=== PATIENT | female | born 1990 | race Caucasian/White ===

== ENCOUNTER 2016-07-28 13:40 | Emergency (ER) | payer BC ==
--- NOTE | 2016-07-28 14:42 | UC ---
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 has only had approx 3 cups of water constant diarrhea that is watery generalized crampy abdominal pain and gas urinated 2x today denies dysuria denies fever and chills when she stands up she feels slightly dizzy - History of Current Complaint Chief Complaint: UCGeneralIllness Stated Complaint: DIARRHEA DIZZY Time Seen by Provider: 07/28/16 14:40 Hx Obtained From: Patient Hx Last Menstrual Period: 07/27/16 Allergies/Adverse Reactions: Allergies Allergy/AdvReac Type Severity Reaction Status Date / Time No Known Allergies Allergy Verified 12/01/14 11:06 Home Medications: Home Medications Bismuth Subsalicylate [Pepto-Bismol] 1 chw 07/28/16 [History] PMH/Surg Hx/FS Hx/Imm Hx Previously Healthy: Yes - Surgical History Surgical History: Yes Surgery Procedure, Year, and Place: Brain Shunt - Family History Known Family History: Negative: Cardiac Disease, Hypertension, Diabetes - Social History Occupation: Unemployed Lives: With Family Alcohol Use: Rare Substance Use Type: None Smoking Status (MU): Never Smoked Tobacco Review of Systems Constitutional: Negative Skin: Negative Eyes: Negative ENT: Negative Respiratory: Negative Cardiovascular: Negative Gastrointestinal: Vomiting, Diarrhea Genitourinary: Negative Motor: Negative Neurovascular: Negative Musculoskeletal: Negative Neurological: Negative Psychological: Negative All Other Systems Reviewed And Are Negative: Yes Physical Exam Triage Information Reviewed: Yes Appearance: No Pain Distress, Well-Nourished Vital Signs: Initial Vital Signs Temp 99.0 F 07/28/16 13:52 Pulse 111 07/28/16 13:52 Resp 18 07/28/16 13:52 BP 134/77 07/28/16 13:52 Pulse Ox 99 07/28/16 13:52 Vital Signs Reviewed: Yes Eyes: Positive: Conjunctiva Clear ENT: Positive: Pharynx normal, TMs normal Neck: Positive: No Lymphadenopathy Respiratory: Positive: Lungs clear, Normal breath sounds, No respiratory distress, No accessory muscle use Cardiovascular: Positive: No Murmur, Pulses Normal, Tachycardia Abdomen Description: Positive: Nontender, No Organomegaly, Soft. Negative: CVA Tenderness (R), CVA Tenderness (L), Distended, Guarding Bowel Sounds: Positive: Hyperactive Musculoskeletal: Positive: No Edema Neurological: Positive: Alert Psychological Exam: Normal Skin Exam: Normal Re-Evaluation - Re-Evaluation First Eval Re-Evaluation Time: 15:30 Change: Unchanged Abd Pain Female Course/Dx - Course Course Of Treatment: exam completed. orthostatic VS positive,BP stable, abdomen non-tender. will give fluid rehydration and zofran for rehydration. discussed s/s of when to seek medical help if symptoms do not improve or worsen and pt states understanding - Differential Dx/Diagnosis Differential Diagnosis: Irritable Bowel Syndrome, Other - gastroenteritis Provider Diagnoses: gastroenteritis Discharge - Discharge Plan Condition: Stable Disposition: HOME Prescriptions: Ondansetron ODT TAB* [Zofran 4 MG Odt TAB*] 4 mg PO Q6H PRN #12 tab.odt PRN Reason: Nausea Patient Education Materials: Gastroenteritis (ED) Referrals: Non Staff,Doctor [Primary Care Provider] - Additional Instructions: Take zofran as directed so you can increase your fluids intake GASTROENTERITIS What is Gastroenteritis? Gastroenteritis is an inflammation of the stomach and bowel that is often called the stomach "flu.'' It should only last 2 or 4 days. You usually get gastroenteritis because you've been in contact with someone who's already infected or because you've eaten contaminated food, or drank contaminated water. Many different viruses can cause intestinal problems but the signs and symptoms are usually the same: watery diarrhea, abdominal cramps, and nausea or vomiting. Symptoms Might Include: Abdominal cramps Diarrhea Nausea Vomiting Blood or mucus in stools Muscle aches Headaches Fever Extreme exhaustion Treatment Recommendations: Decrease activity until you feel better or the diarrhea and vomiting are gone. Take clear liquids, such as sara meryl, cola, water, tea, broth, and gelatin, for the first 24 hours or until the diarrhea and vomiting stops. During the next 24 hours you may eat bland foods like cooked cereals, rice, soup, bread, crackers, baked potatoes, eggs, or applesauce. Do not eat fruits, vegetables, fried or spicy foods, bran, candy, dairy products (such as milk or ice cream), apple juice, or alcoholic beverages. You may go back to your normal diet after 2 to 3 days. Drink 8 to 12 glasses of liquid a day. Most of the problems with gastroenteritis are caused by loss of water through vomiting and diarrhea. You may take ibuprofen (Motrin, Advil) or acetaminophen (Tylenol) for fever and muscle aches. Call Your Doctor or Return Here IF: Your symptoms last for more than 4 days. You have severe pain in the abdomen (area around the stomach) or rectum. You have a high temperature. You find blood, mucus, or worms in your stool. You have signs of dehydration (water loss), including dry mouth, excessive thirst, crinkled skin, little or no urination, dizziness, or light-headedness. You have any other new symptoms that worry you.
[2016-07-28] MEDS ORDERED: Ondansetron ODT TAB* 4 MG PO ONE (14:51)
[2016-07-28 15:59] VITALS: BP 119/69
[2016-07-28] MEDS ORDERED: NS 0.9% 1000 ML* 1,000 ML IV ONE (16:04)
== END 2016-07-28 17:05 | disposition home or self-care (01) ==
LOC: UCEAST 13:40
DX: K52.9 Noninfective gastroenteritis and colitis, unspecified (principal)
CPT/HCPCS: 96360; 99212; A9270-GY; G0463

== ENCOUNTER 2017-04-30 20:13 | Emergency (ER) | payer BC ==
[2017-04-30] MEDS ORDERED: NS 0.9% 1000 ML* 1,000 ML IV ONE (22:20)
[2017-04-30] MEDS ORDERED: Ketorolac INJ* 30 MG/ML 1 ML VIAL IV PUSH ONE (22:20)
[2017-04-30] MEDS ORDERED: Metoclopramide IV* 5 MG/ML 2 ML VIAL IV SLOW PU ONE (22:21)
[2017-04-30] MEDS ORDERED: diPHENhydraMINE IV* 50 MG/ML 1 ml VIAL (BENADRYL) IV ONE (22:21)
[2017-04-30 23:51] LABS: EGFR Non-African American 117.3 (>60)
[2017-05-01 00:12] LABS: ABS Basophils 0.1 10^3/ul (0-0.2); ABS Eosinophils 0.1 10^3/ul (0-0.6); ABS Lymphocytes 2.3 10^3/ul (1.0-4.8); ABS Monocytes 0.9 10^3/ul (0-0.8); ABS Neutrophils 4.9 10^3/ul (1.5-7.7); ABS Nucleated RBC 0 10^3/ul; Eosinophil % 1.6 % (0-6); Hematocrit 37 % (35-47); Hemoglobin 12.1 g/dl (12.0-16.0); Lymphocyte % 27.7 % (25-47); Mean Corpuscular HGB Conc 33 g/dl (31-36); Mean Corpuscular Hemoglobin 24 pg (27-31); Mean Corpuscular Volume 72 fL (80-97); Mean Platelet Volume 7 um3 (7.4-10.4); Nucleated Red Blood Cells % 0.2; Platelet Count 428 10^3/ul (150-450); Red Blood Count 5.12 10^6/ul (4.0-5.4); Red Cell Distribution Width 16 % (10.5-15); White Blood Count 8.3 10^3/ul (3.5-10.8)
--- NOTE | 2017-05-01 01:03 | ED ---
Shonda Rodriguez Edward, scribed for Jesenia Rea MD on 04/30/17 at 2158 . Neck Pain - HPI Summary HPI Summary: 27 y/o female presents to the ED c/o neck pain described as pressure starting earlier today. The pain radiates down the back of her neck on the R side. Associated sx: KENNEY, diarrhea, nausea. Denies vomiting, fever. Pt had a shunt placed at 6 months old for hydrocephalus. LNMP 2 weeks ago. - History of Current Complaint Chief Complaint: EDHeadache Stated Complaint: HEAD/NECK PAIN Time Seen by Provider: 04/30/17 21:56 Hx Obtained From: Patient Hx Last Menstrual Period: 07/27/16 Onset/Duration Of Injury/Symptoms: Hours Timing: Constant Pain Intensity: 5 Pain Scale Used: 0-10 Numeric Location: Radiates To: - down back of neck Character: Other: - pressure Aggravating Factors: Nothing Alleviating Factors: Nothing Associated Signs & Symptoms: Positive: Headache - Allergies/Home Medications Allergies/Adverse Reactions: Allergies Allergy/AdvReac Type Severity Reaction Status Date / Time No Known Allergies Allergy Verified 12/01/14 11:06 PMH/Surg Hx/FS Hx/Imm Hx Previously Healthy: No Endocrine/Hematology History: Denies: Hx Diabetes Cardiovascular History: Denies: Hx Myocardial Infarction Neurological History: Reports: Other Neuro Impairments/Disorders - Hydrocephalus - Surgical History Surgery Procedure, Year, and Place: Brain Shunt - 6 months old Infectious Disease History: No Infectious Disease History: Denies: Hx Clostridium Difficile, Hx Hepatitis, Hx Human Immunodeficiency Virus (HIV), Hx of Known/Suspected MRSA, Hx Shingles, Hx Tuberculosis, Hx Known/ Suspected VRE, Hx Known/Suspected VRSA, History Other Infectious Disease, Traveled Outside the [place] in Last 30 Days - Family History Known Family History: Negative: Cardiac Disease, Hypertension, Diabetes - Social History Alcohol Use: Rare Hx Substance Use: No Substance Use Type: Reports: None Hx Tobacco Use: No Smoking Status (MU): Never Smoked Tobacco Review of Systems Constitutional: Negative Eyes: Negative ENT: Other - neck pain Cardiovascular: Negative Respiratory: Negative Gastrointestinal: Negative Genitourinary: Negative Musculoskeletal: Negative Skin: Negative Positive: Headache Psychological: Normal All Other Systems Reviewed And Are Negative: Yes Physical Exam - Summary Physical Exam Summary: VITAL SIGNS: Reviewed. GENERAL: Patient is a well-developed and nourished female who is lying comfortable in the stretcher. Patient is not in any acute respiratory distress. HEAD AND FACE: No signs of trauma. No ecchymosis, hematomas or skull depressions. No sinus tenderness. EYES: PERRLA, EOMI x 2, No injected conjunctiva, no nystagmus. EARS: Hearing grossly intact. Ear canals and tympanic membranes are within normal limits. MOUTH: Oropharynx within normal limits. NECK: Supple, trachea is midline, no adenopathy, no JVD, no carotid bruit, no c- spine tenderness, neck with full ROM. CHEST: Symmetric, no tenderness at palpation LUNGS: Clear to auscultation bilaterally. No wheezing or crackles. CVS: Regular rate and rhythm, S1 and S2 present, no murmurs or gallops appreciated. ABDOMEN: Soft, non-tender. No signs of distention. No rebound no guarding, and no masses palpated. Bowel sounds are hyperactive. EXTREMITIES: FROM in all major joints, no edema, no cyanosis or clubbing. NEURO: Alert and oriented x 3. No acute neurological deficits. Speech is normal and follows commands. SKIN: Dry and warm Triage Information Reviewed: Yes Vital Signs On Initial Exam: Initial Vitals Temp Pulse Resp BP Pulse Ox 99 F 88 16 122/72 100 04/30/17 20:15 04/30/17 20:15 04/30/17 20:15 04/30/17 20:15 04/30/17 20:15 Vital Signs Reviewed: Yes Diagnostics - Vital Signs Vital Signs Temp Pulse Resp BP Pulse Ox 04/30/17 20:15 99 F 88 16 122/72 100 - Laboratory Result Diagrams: 04/30/17 23:05 04/30/17 23:05 Lab Statement: Any lab studies that have been ordered have been reviewed, and results considered in the medical decision making process. - CT BRAIN CT CT Interpretation: No Acute Changes - Right frontal ventriculostomy tube is seen terminating near the tip of the right frontal horn. Right lateral ventricle slightly smaller in size compared to left. No evidence of obstructive hydrocephalus or midline shift. There is no CT evidence of acute cortical territorial infarction, bleed, mass lesion, mass effect, hydrocephalus or abnormal extraaxial collection. CT Interpretation Completed By: Radiologist - ED PHYSICIAN REVIEWS AND AGREES. Re-Evaluation - Re-Evaluation 1 Re-Evaluation Time: 00:54 Change: Improved Comment: Discuss CT results Neck Course/Dx - Course Assessment/Plan: BRAIN CT SHOWS Right frontal ventriculostomy tube is seen terminating near the tip of the right frontal horn. Right lateral ventricle slightly smaller in size compared to left. No evidence of obstructive hydrocephalus or midline shift. There is no CT evidence of acute cortical territorial infarction, bleed, mass lesion, mass effect, hydrocephalus or abnormal extraaxial collection. On re-eval the pt is improved. Pt will be d/c home w/ f/u with PCP. - Diagnoses Provider Diagnoses: Headache Discharge - Discharge Plan Condition: Stable Disposition: HOME Patient Education Materials: General Headache (ED) Referrals: Non Staff,Doctor [Primary Care Provider] - 4 Days (PLEASE F/U IN 3-5 DAYS) Additional Instructions: RETURN TO THE ED FOR THE RETURN OR WORSENING OF SYMPTOMS The documentation as recorded by the Shonda tucker Edward accurately reflects the service I personally performed and the decisions made by me, Jesenia Rea MD.
[2017-05-01 01:21] VITALS: BP 119/59
--- NOTE | 2017-05-01 07:42 | RAD ---
INDICATION: Head and neck pain in a patient with a ventriculoperitoneal shunt. COMPARISON: None. TECHNIQUE: Contiguous axial sections of the brain were obtained from the skull base to the vertex without contrast. FINDINGS: A right frontal lobe ventriculoperitoneal shunt is seen terminating in the anterior horn of the right lateral ventricle on the sagittal view images (image 15) the tip of the catheter appears to terminate at the margin of the ventricle. Otherwise the ventricles, cisterns and sulci are within normal limits. The cohen-white matter differentiation is adequately maintained and there is no sulcal effacement. No significant focal abnormality or mass effect is present. There is no evidence for intracranial hemorrhage. No significant focal osseous abnormality is present. The visualized portion of the paranasal sinuses appear clear. The mastoid air cells are well aerated bilaterally. IMPRESSION: 1. The right frontal lobe ventricle appears to terminate at the very margin of the right frontal ventricle but there is no appearance of hydrocephalus, asymmetric or otherwise. 2. Otherwise normal CT of the brain.
== END 2017-05-01 01:20 | disposition home or self-care (01) ==
LOC: ED 20:13
DX: R51 Headache (principal); M54.2 Cervicalgia
CPT/HCPCS: 36415; 70450; 80053; 84702; 85025; 96374; 96375; 99283; J1200; J1885; J2765

== ENCOUNTER 2017-07-06 20:53 | Emergency (ER) | payer BC ==
[2017-07-06 21:09] VITALS: BP 128/66
--- NOTE | 2017-07-06 21:17 | UC ---
Ear Complaint HPI - HPI Summary HPI Summary: 27 year old with ear complaint . ear is painful for 3-4 days. feels plugged. tried q tip and essential oils and not improved no vertigo. no falling. no discharge otherwise. - History of Current Complaint Stated Complaint: EAR CLOGGED Time Seen by Provider: 07/06/17 21:04 Hx Obtained From: Patient Hx Last Menstrual Period: 07/27/16 Onset/Duration: Gradual Onset - Allergies/Home Medications Allergies/Adverse Reactions: Allergies Allergy/AdvReac Type Severity Reaction Status Date / Time No Known Allergies Allergy Verified 12/01/14 11:06 Home Medications: Home Medications Testosterone [Androgel] 2.5 mg SUBCUT WEEKLY 07/06/17 [History Confirmed ] PMH/Surg Hx/FS Hx/Imm Hx Previously Healthy: Yes - Surgical History Surgical History: Yes Surgery Procedure, Year, and Place: Brain Shunt - 6 months old - Family History Known Family History: Negative: Cardiac Disease, Hypertension, Diabetes - Social History Occupation: Employed Full-time - [employer] Lives: With Family Alcohol Use: Rare Substance Use Type: None Smoking Status (MU): Never Smoked Tobacco Review of Systems ENT: Ear Ache Is Patient Immunocompromised?: No All Other Systems Reviewed And Are Negative: Yes Physical Exam Triage Information Reviewed: Yes Appearance: Well-Appearing Vital Signs Reviewed: Yes Eye Exam: Normal ENT: Positive: TM bulging, TM dull, TM red - left ear Neck exam: Normal Respiratory Exam: Normal Cardiovascular Exam: Normal Musculoskeletal Exam: Normal Neurological Exam: Normal Psychological Exam: Normal Ear Complaint Course/Dx - Differential Dx/Diagnosis Differential Diagnosis/HQI/PQRI: Otitis Externa, Otitis Media, URI Provider Diagnoses: Left AOM Discharge - Sign-Out/Discharge Documenting (check all that apply): Discharge/Admit/Transfer - Discharge Plan Condition: Good Disposition: HOME Prescriptions: Amoxicillin PO (*) [Amoxicillin 875 MG (*)] 875 mg PO BID 10 Days #20 tab Patient Education Materials: Ear Infection (ED) Referrals: Non Staff,Doctor [Primary Care Provider] - If Needed - Billing Disposition and Condition Condition: GOOD Disposition: HOME
[2017-07-06] MEDS ORDERED: Amoxicillin PO (*) 500 MG CAP PO ONE (21:21)
== END 2017-07-06 21:33 | disposition home or self-care (01) ==
LOC: UCEAST 20:53
DX: H66.92 Otitis media, unspecified, left ear (principal)
CPT/HCPCS: 99212; A9270-GY; G0463

== ENCOUNTER 2018-12-09 02:40 | Emergency (ER) | payer SELFPAY ==
--- NOTE | 2018-12-09 03:39 | ED ---
Head Injury - HPI Summary HPI Summary: This patient is a 28 year old F presenting to [facility] accompanied by female friend with a chief complaint of head injury at 0200 12/09/18. Symptoms aggravated by nothing. Symptoms alleviated by nothing. Patient reports he was getting something out of cabinet and bent down and hit his head when he came up. Pt reports bleeding at accident, vomited once. Pt concerned due to hitting head close to his shunt. - History Of Current Complaint Chief Complaint: EDHeadInjury Stated Complaint: HIT HEAD PER PT Time Seen by Provider: 12/09/18 02:51 Hx Obtained From: Patient Hx Last Menstrual Period: 07/27/16 Mechanism Of Injury: Other - got up and hit head on cabinet Onset/Duration: Started Hours Ago Onset of Pain: Immediate Pain Intensity: 3 Pain Scale Used: 0-10 Numeric Aggravating Factor(s): Other: - nothing Alleviating Factor(s): Other: - nothing Associated Signs And Symptoms: Vomiting, Other: - bleeding - Allergies/Home Medications Allergies/Adverse Reactions: Allergies Allergy/AdvReac Type Severity Reaction Status Date / Time No Known Allergies Allergy Verified 12/09/18 02:43 Home Medications: Home Medications Testosterone Cypionate 0.5 ml SUBCUT WEEKLY 12/09/18 [History Confirmed 12/09/18 ] PMH/Surg Hx/FS Hx/Imm Hx Endocrine/Hematology History: Denies: Hx Anticoagulant Therapy, Hx Diabetes, Hx Thyroid Disease Cardiovascular History: Denies: Hx Hypertension, Hx Myocardial Infarction Respiratory History: Denies: Hx Asthma, Hx Chronic Obstructive Pulmonary Disease (COPD) GI History: Denies: Hx Ulcer Neurological History: Reports: Other Neuro Impairments/Disorders - Hydrocephalus - Surgical History Surgery Procedure, Year, and Place: Brain Shunt - 6 months old Infectious Disease History: No Infectious Disease History: Denies: Hx Clostridium Difficile, Hx Hepatitis, Hx Human Immunodeficiency Virus (HIV), Hx of Known/Suspected MRSA, Hx Shingles, Hx Tuberculosis, Hx Known/ Suspected VRE, Hx Known/Suspected VRSA, History Other Infectious Disease, Traveled Outside the [place] in Last 30 Days - Family History Known Family History: Negative: Cardiac Disease, Hypertension, Diabetes - Social History Alcohol Use: Rare Hx Substance Use: No Substance Use Type: Reports: None Hx Tobacco Use: No Smoking Status (MU): Never Smoked Tobacco Review of Systems Positive: Vomiting Neurological: Other - head injury/bleeding All Other Systems Reviewed And Are Negative: Yes Physical Exam - Summary Physical Exam Summary: Appearance: Well-appearing, Well-nourished, lying in bed comfortable Skin: Warm, dry, no obvious rash Eyes: sclera anicteric, no conjunctival pallor ENT: mucous membranes moist Neck: deferred Respiratory: No signs of respiratory distress Cardiovascular: Appears well perfused, pulses are nml Abdomen: deferred Musculoskeletal: Moving all 4 extremities without obvious discomfort Neurological: Awake and alert, mentation is normal, speech is fluent and appropriate Psychiatric: affect is normal, does not appear anxious or depressed Head: 3 mm very superficial laceration of the right parietal of scalp, not actively bleeding pp shunt was palpated under the skin and its course runs within 2 cm of the wound does not appear to be injured or disrupted Triage Information Reviewed: Yes Vital Signs On Initial Exam: Initial Vitals Temp Pulse Resp BP Pulse Ox 98.7 F 69 15 133/69 99 12/09/18 02:41 12/09/18 02:41 12/09/18 02:41 12/09/18 02:41 12/09/18 02:41 Vital Signs Reviewed: Yes Procedures - Sedation Patient Received Moderate/Deep Sedation with Procedure: No Diagnostics - Vital Signs Vital Signs Temp Pulse Resp BP Pulse Ox 12/09/18 02:41 98.7 F 69 15 133/69 99 - Laboratory Lab Statement: Any lab studies that have been ordered have been reviewed, and results considered in the medical decision making process. Head Injury Course/Dx Course Of Treatment: This patient is a 28 year old F [facility] by female friend with a chief complaint of head injury at 0200 . Patient reports he was getting something out of cabinet and bent down and hit his head when he came up. Pt reports bleeding at accident, vomited once. Pt concerned due to hitting head close to his shunt. Physical Exam Findings show no abnormalities except for 3 mm v superficial laceration of the right parietal of scalp, not actively bleeding pp shunt was palpated under the skin and its course runs within 2 cm of the wound does not appear to be injured or disrupted. Patient will be discharged. The patient is agreeable with this plan. - Diagnoses Provider Diagnoses: Scalp laceration Discharge ED - Sign-Out/Discharge Documenting (check all that apply): Patient Departure - discharge - Discharge Plan Condition: Good Disposition: HOME Patient Education Materials: Scalp Contusion in Adults (ED) Referrals: No Primary Care Phys,NOPCP [Primary Care Provider] - Additional Instructions: The wound on the scalp is quite small and superficial and has stopped bleeding, so does not need any type of closure at this time. It looks like you missed the shunt, the tubing feels like it is intact and about an inch away from the wound. - Billing Disposition and Condition Condition: GOOD Disposition: Home - Attestation Statements Document Initiated by Karon: Yes Documenting Scribe: Sobia Miles Provider For Whom Karon is Documenting (Include Credential): Dr. Joe Marie MD Scribe Attestation: I, Sobia Miles, scribed for Dr. Joe Marie MD on 12/17/18 at 0016. Scribe Documentation Reviewed: Yes Provider Attestation: The documentation as recorded by the Sobia tucker accurately reflects the service I personally performed and the decisions made by me, Dr. Joe Marie MD Status of Scribe Document: Viewed
[2018-12-09 04:18] VITALS: BP 125/65
== END 2018-12-09 04:15 | disposition home or self-care (01) ==
LOC: ED 02:40
DX: S01.01XA Laceration without foreign body of scalp, initial encounter (principal); W22.09XA Striking against other stationary object, initial encounter; Y92.9 Unspecified place or not applicable; Z79.890 Hormone replacement therapy
CPT/HCPCS: 99282

== ENCOUNTER 2019-03-11 16:13 | Emergency (ER) | payer SELFPAY ==
[2019-03-11 16:23] VITALS: BP 121/81
--- NOTE | 2019-03-11 16:34 | UC ---
Rectal Pain HPI - HPI Summary HPI Summary: 29yo female presenting with "rectal pain and a little blood on toilet paper" x2 days. Patient states concern for hemorrhoids, and states she thinks she had them in the past. States pain with defecation and also with sitting. Denies current pain. Denies blood in the stool. Denies black stool. Denies changes in appetite. Denies n/v. States she has put "diaper rash powder" on it without relief. Denies h/o GI disorders. - History Of Current Complaint Chief Complaint: UCGU Stated Complaint: PERSONAL Hx Last Menstrual Period: 07/27/16 Severity Currently: None Pain Intensity: 5 - Allergies/Home Medications Allergies/Adverse Reactions: Allergies Allergy/AdvReac Type Severity Reaction Status Date / Time No Known Allergies Allergy Verified 12/09/18 02:43 PMH/Surg Hx/FS Hx/Imm Hx Other History Of: Negative For: Anticoagulant Therapy - Surgical History Surgical History: Yes Surgery Procedure, Year, and Place: Brain Shunt - Family History Known Family History: Negative: Cardiac Disease, Hypertension, Diabetes - Social History Alcohol Use: Rare Substance Use Type: None Smoking Status (MU): Never Smoked Tobacco Review of Systems All Other Systems Reviewed And Are Negative: Yes Constitutional: Positive: Negative. Negative: Fever, Chills Respiratory: Positive: Negative Cardiovascular: Positive: Negative Gastrointestinal: Positive: Negative, Other - "rectal pain and blood on toilet paper". Negative: Abdominal Pain, Vomiting, Diarrhea, Nausea Physical Exam Triage Information Reviewed: Yes Appearance: Well-Appearing, No Pain Distress, Well-Nourished Vital Signs: Initial Vital Signs Temp 99.5 F 03/11/19 16:18 Pulse 76 03/11/19 16:18 Resp 18 03/11/19 16:18 BP 121/81 03/11/19 16:18 Pulse Ox 100 03/11/19 16:18 Vital Signs Reviewed: Yes Eyes: Positive: Conjunctiva Clear ENT: Positive: Hearing grossly normal Neck: Positive: Supple Respiratory Exam: Normal Respiratory: Positive: Lungs clear, Normal breath sounds, No respiratory distress Cardiovascular Exam: Normal Cardiovascular: Positive: RRR Abdominal Exam: Normal Abdomen Description: Positive: Nontender, Soft Neurological: Positive: Alert Psychological: Positive: Age Appropriate Behavior Rectal Pain Course/Dx - Course Course Of Treatment: Patient declined both visual and physical rectal examination. Educated on possible hemorrhoids and anal fissures. Patient stated belief that she has hemorrhoids, so I educated on symptomatic treatment. Instructed to follow up with physician referral or gastro referral if symptoms worsen or persist. Patient voiced understanding and agreed with treatment plan. - Differential Dx/Diagnosis Differential Diagnosis/HQI/PQRI: Hemorrhoid(s), Rectal Fissure Provider Diagnosis: Blood on toilet paper, Rectal pain Discharge ED - Sign-Out/Discharge Documenting (check all that apply): Patient Departure All imaging exams completed and their final reports reviewed: No Studies - Discharge Plan Condition: Stable Disposition: HOME Patient Education Materials: Hemorrhoids (ED) Referrals: Richie Pepper MD [Medical Doctor] - If Needed [facility] [place] [facility] [place]] - If Needed Additional Instructions: It is recommended that you increase water and fiber intake to help relieve symptoms of possible hemorrhoids. You may also try over the counter medications, such as Preparation H, for pain any symptom relief. A stool softener or laxative and sitz baths may also help symptoms. Follow up with the physician referral or gastroenterology referral listed below if symptoms worsen or do not resolve within the next 2 weeks. - Billing Disposition and Condition Condition: STABLE Disposition: Home
== END 2019-03-11 16:59 | disposition home or self-care (01) ==
LOC: UCEAST 16:13
DX: K62.89 Other specified diseases of anus and rectum (principal); K62.5 Hemorrhage of anus and rectum
CPT/HCPCS: 99201; G0463

== ENCOUNTER 2019-03-19 13:31 | Emergency (ER) | payer SELFPAY ==
--- NOTE | 2019-03-19 15:14 | UC ---
Abdominal Pain Female HPI - HPI Summary HPI Summary: Patient is a 29-year-old male who is transitioning on testosterone treatments. Patient states for the last 2 days he's had pain in his left back. Patient states it radiates around to the front. Patient states it's worse with movement and position change. Patient denies any nausea vomiting. Patient denies any fevers or chills. Patient has a rash. Patient has taken Motrin once with some improvement in symptoms. No hematuria. No diarrhea,. Patient patient states he was concerned he may be constipated and has not had a bowel movement in the last 24 hours. Patient states this is slightly unusual for him. Patient states he does not feel constipated and has not been straining. Patient was recently evaluated for hemorrhoid that has gotten better. Patient denies any bright red blood from his rectum. Patient denies any pressure to have a bowel movement. Patient states he has been passing flatus. Patient states he does not get his menses and has never had ovarian cyst. - History of Current Complaint Chief Complaint: UCAbdominalPain Stated Complaint: ABDOMINAL PAIN Time Seen by Provider: 03/19/19 15:12 Hx Obtained From: Patient Hx Last Menstrual Period: one year ago Onset/Duration: Gradual Onset Severity Initially: Mild Severity Currently: Mild Pain Intensity: 3 Allergies/Adverse Reactions: Allergies Allergy/AdvReac Type Severity Reaction Status Date / Time No Known Allergies Allergy Verified 03/19/19 13:49 PMH/Surg Hx/FS Hx/Imm Hx Previously Healthy: Yes - transgender Other History Of: Negative For: Anticoagulant Therapy - Surgical History Surgical History: Yes Surgery Procedure, Year, and Place: ORE SAMPLER shunt for hydrocephalus - Family History Known Family History: Positive: Non-Contributory Negative: Cardiac Disease, Hypertension, Diabetes - Social History Occupation: Employed Full-time Lives: With Family Alcohol Use: Rare Substance Use Type: None Smoking Status (MU): Never Smoked Tobacco Review of Systems All Other Systems Reviewed And Are Negative: Yes Constitutional: Positive: Negative Skin: Positive: Negative Eyes: Positive: Negative ENT: Positive: Negative Respiratory: Positive: Negative Cardiovascular: Positive: Negative Gastrointestinal: Positive: Other - Possible, constipation, left back flank pain Genitourinary: Positive: Dysuria Physical Exam - Summary Physical Exam Summary: Vital Signs Reviewed: Yes A+Ox3, no distress Eyes: Conjunctiva Clear, DANTE. EOM intact and full ENT: Hearing grossly normal TM x 2 clear, mmoist, uvula midline, no exudate, no erythema Neck: Positive: Supple Respiratory: Positive: No respiratory distress, No accessory muscle use + CTA throughout no w/r Cardiovascular: RRR nl s1, s2 no m/r CBT <2 sec abd soft + BS nt/nd no guarding, no distension No pain c/t/l/s Full AROM + TTP left paraspinal lumbar pain. Pain worse with direct palpation. Pain increases with ROM and SLE. Pt also reports pain in tis same region with lying flat, sitting up Musculoskeletal Exam: TALAMANTES x 4 without difficulty Strength Intact, ROM Intact Neurological: Positive: Alert, + sensation throughout Psychological: Positive: Normal Response To examiner Skin: Positive: no rash, no ecchymosis Triage Information Reviewed: Yes Vital Signs: Initial Vital Signs Temp 96.6 F 03/19/19 13:46 Pulse 87 03/19/19 13:46 Resp 16 03/19/19 13:46 BP 134/73 03/19/19 13:46 Pulse Ox 100 03/19/19 13:46 Diagnostics - Radiology No standard instances Radiology Interpretation Completed By: Radiologist - Patient Name: AMELIA WESTFALL Medical Record#: [id number] Ordering Physician: Mahi Lamar MD Acct.#: [id number] : 1990 Age: 29 Sex: F Location: [facility] Exam Date: 03/19/19 1548 ADM Status: [facility] ER Order Information: ABDOMEN/KUB 1 VW Accession Number: [id number] CPT: 05002 INDICATION: Abdominal pain. COMPARISON: There are no relevant prior studies available for comparison. TECHNIQUE: Frontal supine films of the abdomen were obtained. FINDINGS: There are several gaseous distended but not dilated loops of bowel. Air extends to the rectum. No soft tissue or calcified abnormality is identified. The lung bases are clear. The osseous structures are grossly unremarkable. A partially imaged ORE SAMPLER shunt descends along the right hemithorax and terminates in the right lower quadrant. IMPRESSION: 1. GASEOUS DISTENDED (NOT DILATED) BOWEL. 2. ORE SAMPLER SHUNT TERMINATES IN THE RIGHT LOWER QUADRANT. <Electronically signed by Richie Velez MD in OV> 1610 Dictated By: Richie Velez MD Dictated Date/Time: 03/19/191606 Transcribed Date/Time: 03/19/191606 Copy to: CC:Mahi Lamar MD; No Primary Care Phys,NOPCP Imaging - [facility] Imaging - [facility] Imaging - [facility] [id number] [place] [id number] [place] [id number] ph ) ph ([phone]) ph ([phone]) This report is only to be considered final once signed by the Provider(s) as displayed in the "< Electronically Signed by >" field (s). Absence of a signature indicates the report is in a draft status and still needs to be finalized. In the event this document was created by someone other than the signing Provider, the individual initiating the document will be listed in the "Entered by:" or "Dictated by:" ramírez. 1 of 1 Patient Name: AMELIA WESTFALL Medical Record#: [id number] Ordering Physician: Mahi Lamar MD Acct.#: [id number] : 1990 Age: 29 Sex: F Location: [facility] Exam Date: 03/19/19 1548 ADM Status: REG ER Order Information : SP LUMBAR AP/LAT 2-3 VIEWS Accession Number: [id number] CPT: 55483 HISTORY: back pain abd pain COMPARISONS: None relevant available at the time of dictation. VIEWS: 3 , Frontal, lateral, and coned-down lateral sacral views of the lumbar spine FINDINGS: ALIGNMENT: There is mild dextroscoliotic curvature of the spine. VERTEBRAL BODIES: The vertebral body heights are normal. The interpedicular distances are normal. JOINTS: The facet joints are normal. INTERVERTEBRAL DISCS: The intervertebral disc heights are normal. SOFT TISSUE: Unremarkable. OTHER: The pelvis is unremarkable. The lung bases are clear. ORE SAMPLER shunt tubing is noted in the right hemiabdomen. IMPRESSION: MILD SCOLIOSIS. _ <Electronically signed by Brian Vale MD in OV> 03/19/19 1610 Dictated By: Brian Vale MD Dictated Date/Time: 03/19/19 1608 Transcribed Date/Time: 03/19/191607 Copy to: CC:Mahi Lamar MD; No Primary Care Phys,NOPCP Imaging - [facility] Imaging - [facility] Imaging - [facility] [address] [facility] [address] [facility] [address] ph ) ph ([phone]) ph ([phone]) This report is only to be considered final once signed by the Provider(s) as displayed in the "< Electronically Signed by >" field (s). Absence of a signature indicates the report is in a draft status and still needs to be finalized. In the event this document was created by someone other than the signing Provider, the individual initiating the document will be listed in the "Entered by:" or "Dictated by:" ramírez. 1 of 1 Re-Evaluation - Re-Evaluation First Eval Comment: es Pt reports he feels better following analtesia. reviewed urine, imaging studies. heat. stretch. motrin/apap. f/u with pcp. work restrcition. strict return precautions. pt comfortable and in agreement with plan Abd Pain Female Course/Dx - Course Course Of Treatment: Patient presents to urgent care for 2 days of pain in his back and radiates to left flank. Patient states he felt like he maybe constipated is having flatus. Patient without any urinary symptoms. On exam vital signs are stable. Patient with focal pain left inferior lumbar region. Worse with movement and palpation and strength testing against resistance. On exam his abdomen is soft nondistended and non-concerning for an acute process. We'll check a urine as well as test as he has femur, neck genitalia. We'll do a flat plate x -ray for constipation as well as spine x-rays. We'll give analgesia. Patient comfortable and agreeable to plan. We'll reassess following imaging. D/w pt at length - suspect sx are MS back pain source given examination finding - Differential Dx/Diagnosis Provider Diagnosis: Back pain Discharge ED - Sign-Out/Discharge Documenting (check all that apply): Patient Departure All imaging exams completed and their final reports reviewed: Yes - Discharge Plan Condition: Stable Disposition: HOME Patient Education Materials: Back Pain (ED), Lower Back Exercises (ED) Forms: *Gen. Provider Communication, *Work Release Referrals: [facility] [place] PH[facility]IAN REFERRAL [Outside] No Primary Care Phys,NOPCP [Primary Care Provider] - Additional Instructions: - Okay to alternate ibuprofen (Advil, Motrin) 600mg and acetaminophen (Tylenol) every 3 hours as needed for pain. Take with food. Do NOT take for more than 4-5 days. - Apply moist heat to your back for 20 minutes at a time, 4-5 times a day. Once your muscles are warm, slow gentle stretching exercises are important - When you are sleeping, if you are on your back, lay with a pillow under your knees. If you are on your side, place a pillow between your knees. - Contact your doctor today to arrange a follow-up appointment next week. If you pain is uncontrolled - go to an emergency department for further treatment - Billing Disposition and Condition Condition: STABLE Disposition: Home
[2019-03-19] MEDS ORDERED: Acetaminophen TAB* 325 MG PO ONE (15:50)
[2019-03-19 16:37] VITALS: BP 118/70
--- NOTE | 2019-03-22 15:37 | UC ---
- Progress Note Progress Note: Urine culture results reviewed. Strep group B 25-50,000 CFU/ml as well as normal fred. Based on the organism count this is unlikely to be an acute UTI and the cause of her symptoms. Nursing contact the patient to follow up on her symptoms. If symptoms improving she should continue with the established plan of care. If patient is having UTI symptoms and has had no improvement, we will send in a prescription for an appropriate antibiotic to treat for UTI and patient should follow up as previously directed. Course/Dx - Diagnoses Provider Diagnoses: Back pain Discharge ED - Sign-Out/Discharge Documenting (check all that apply): Post-Discharge Follow Up All imaging exams completed and their final reports reviewed: Yes - Discharge Plan Condition: Stable Disposition: HOME Patient Education Materials: Back Pain (ED), Lower Back Exercises (ED) Forms: *Gen. Provider Communication, *Work Release Referrals: [facility] [place] [facility]FERR[facility] [Outside] No Primary Care Phys,NOPCP [Primary Care Provider] - Additional Instructions: - Okay to alternate ibuprofen (Advil, Motrin) 600mg and acetaminophen (Tylenol) every 3 hours as needed for pain. Take with food. Do NOT take for more than 4-5 days. - Apply moist heat to your back for 20 minutes at a time, 4-5 times a day. Once your muscles are warm, slow gentle stretching exercises are important - When you are sleeping, if you are on your back, lay with a pillow under your knees. If you are on your side, place a pillow between your knees. - Contact your doctor today to arrange a follow-up appointment next week. If you pain is uncontrolled - go to an emergency department for further treatment - Billing Disposition and Condition Condition: STABLE Disposition: Home
== END 2019-03-19 17:13 | disposition home or self-care (01) ==
LOC: UCEAST 13:31
DX: M54.9 Dorsalgia, unspecified (principal); R10.9 Unspecified abdominal pain; R21 Rash and other nonspecific skin eruption
CPT/HCPCS: 72100; 74018; 81003; 84702; 87077; 87086; 99211; A9270-GY; G0463

== ENCOUNTER 2019-11-30 22:49 | Inpatient (IN) ==
[2019-11-30 23:56] LABS: ABS Basophils 0.1 10^3/ul (0-0.2); ABS Eosinophils 0.1 10^3/ul (0-0.6); ABS Lymphocytes 1.7 10^3/ul (1.0-4.8); ABS Monocytes 0.8 10^3/ul (0-0.8); ABS Neutrophils 5.3 10^3/ul (1.5-7.7); Hematocrit 37 % (35-47); Hemoglobin 11.9 g/dL (12.0-16.0); Mean Corpuscular HGB Conc 32 g/dL (31-36); Mean Corpuscular Hemoglobin 21 pg (27-31); Mean Corpuscular Volume 67 fL (80-97); Mean Platelet Volume 7.1 fL (7.4-10.4); Platelet Count 451 10^3/uL (150-450); Red Blood Count 5.56 10^6 /uL (3.70-4.87); Red Cell Distribution Width 18 % (10-15); White Blood Count 7.9 10^3/uL (3.5-10.8)
[2019-12-01 00:15] LABS: ALT 10 U/L (7-52); AST 14 U/L (13-39); Albumin 4.7 g/dL (3.2-5.2); Albumin/Globulin Ratio 1.3 (1-3); Alkaline Phosphatase 55 U/L (34-104); Anion Gap 8 mmol/L (2-11); BUN/Creatinine Ratio 13.2 (8-20); Blood Urea Nitrogen 9 mg/dL (6-24); CO2 Carbon Dioxide 25 mmol/L (22-32); Calcium 9.5 mg/dL (8.6-10.3); Chloride 104 mmol/L (101-111); EGFR African American 125.6 (>60); EGFR Non-African American 103.8 (>60); Globulin 3.6 g/dL (2-4); Glucose 102 mg/dL (70-100); Potassium 3.8 mmol/L (3.5-5.0); Sodium 137 mmol/L (135-145); Total Protein 8.3 g/dL (6.4-8.9)
[2019-12-01 00:21] LABS: HCG Pregnancy < 0.60 mIU/mL
[2019-12-01 00:55] LABS: Acetaminophen < 15 mcg/mL; Alcohol, S < 10 mg/dL (<10); Salicylate < 2.50 mg/dL (<30)
[2019-12-01 01:11] LABS: TSH Ultra Thyroid Stim Horm 2.64 mcIU/mL (0.34-5.60)
[2019-12-01 01:14] LABS: Urine Appearance Clear; Urine Bilirubin Negative (Negative); Urine Blood Negative (Negative); Urine Color Straw; Urine Glucose Negative (Negative); Urine Ketones Negative (Negative); Urine Nitrite Negative (Negative); Urine Protein Negative (Negative); Urine Specific Gravity 1.005 (1.010-1.030); Urine Urobilinogen Negative (Negative)
[2019-12-01 01:27] LABS: Urine Bacteria 1+ (Absent); Urine Red Blood Cell Trace(0-2/hpf) (Absent); Urine Squamous Epithelial Cell Present (Absent); Urine White Blood Cell 1+(6-10/hpf) (Absent)
[2019-12-01 01:36] LABS: Urine Benzodiazepine Screen None Detected (None Detect); Urine Cannabinoids Screen None Detected (None Detect); Urine Opiates Screen None Detected (None Detect)
[2019-12-01] MEDS ORDERED: Al Hydrox/Mg Hydrox/Simet LIQ 30 ML UDC PO PRN (05:36)
[2019-12-01] MEDS ORDERED: Testosterone Cypionate (NF) 200 MG/ML VIAL IM SCH (09:00)
[2019-12-01] MEDS: Vitamin THERAPEUTIC TAB PO SCH (10:45)
[2019-12-02 09:03] LABS: HDL Cholesterol 37.6 mg/dL
[2019-12-02 10:24] VITALS: BP 136/90
[2019-12-02] MEDS: Vitamin THERAPEUTIC TAB PO SCH (10:49)
== END 2019-12-02 17:20 | disposition home or self-care (01) | DRG 885 ==
LOC: ED 22:49 → BSU 12-01 05:15
PROVIDERS: ADMIT Psychiatry & Neurology Psychiatry; ATTEND Psychiatry & Neurology Psychiatry